=== PATIENT | female | born 1980 | race Caucasian/White ===

== ENCOUNTER 2018-01-15 21:26 | Emergency (ER) | payer SELFPAY ==
[2018-01-15 21:48] VITALS: BP 145/87
--- NOTE | 2018-01-15 21:50 | ED Physician Documentation ---
Skin Rash - HISTORIAN Historian: patient - HPI Stated Complaint: Facial rash Chief Complaint: Skin Rash Onset: days ago (4) Timing: still present Duration: worse Location: facial Quality: none Identified Cause?: No Where: home Context: Medication Exposure: none Context: Food Exposure: none Context: Other Exposure: other (none ) - ROS CONST: none CVS/RESP: none MS/SKIN/LYMPH: rash - PAST HX Past History: none Other History: none Surgeries/Procedures: No Immunizations: UTD Allergies/Adverse Reactions: Allergies Allergy/AdvReac Type Severity Reaction Status Date / Time citalopram [From Celexa] Allergy Verified 01/15/18 21:48 fluoxetine [From Prozac] Allergy Verified 01/15/18 21:48 sertraline [From Zoloft] Allergy Verified 01/15/18 21:48 Home Medications: Ambulatory Orders Medication Instructions Recorded Doxycycline Monohydrate 100 mg PO BID 01/15/18 [Vibramycin] Mupirocin [Bactroban] 1 applic TOP TID 01/15/18 - SOCIAL HX Smoking History: non-smoker Alcohol Use: none Drug Use: none - FAMILY HX Family History: none - VITAL SIGNS Vital Signs: Vital Signs Temp Pulse Resp BP Pulse Ox 98.8 F 95 H 16 145/87 95 01/15/18 21:26 01/15/18 21:26 01/15/18 21:26 01/15/18 21:26 01/15/18 21:26 - REVIEWED ASSESSMENTS Nursing Assessment Reviewed: Yes Vitals Reviewed: Yes ED Results Lab/Radiology - Orders Orders: ED Orders Category Date Time Status Clindamycin HCl [Cleocin] Med 01/15/18 21:51 Once 300 mg PO NOW ONE methylPREDNISolone ACETATE [Depo-Medrol] Med 01/15/18 21:51 Once 80 mg IM NOW ONE Skin Rash Physical Exam - EXAM General Appearance: no acute distress, alert Skin: warm,dry, other (raised areas with white pustule formations. Some crusting. ) Location: generalized, face Character: symmetric, papular, patchy, vesicular Symptoms: swelling, crusting. No: warmth, tenderness Extremities: non-tender, nml ROM, no edema EENT: eyes nml inspection Neck: trachea midline, no swelling Respiratory: no resp distress, chest non-tender, breath sounds normal CVS: reg. rate & rhythm, heart sounds nml Abdomen: non-tender Neuro/Psych: oriented x3, CN's nml as tested, motor nml, sensation nml, mood/affect nml Discharge Clincal Impression: Skin rash Referrals: Primary Doctor,No [Primary Care Provider] - 2 Days Additional Instructions: 1. Stop Doxycycline 2. Start Clindamycin 300 mg take 1 by mouth TID x 10 days 3. Continue cream as prescribed 4. Watch for signs of spreading 5. Benadryl if needed as directed 6. Follow up with PCP in 2-4 days 7. Return to ER for further concerns Condition: Stable Disposition: 01 HOME, SELF-CARE Decision to Admit: NO Date of Decison to Admit: 01/15/18 Decision Time: 21:55
[2018-01-15] MEDS ORDERED: methylPREDNISolone ACETATE 80 MG/ML VIAL IM ONE (21:51)
[2018-01-15] MEDS ORDERED: CLINDAMYCIN HCL 150 MG CAPSULE PO ONE (21:51)
== END 2018-01-15 22:05 | disposition home or self-care (01) ==
LOC: ED 21:26
DX: R21 Rash and other nonspecific skin eruption (principal)
CPT/HCPCS: A9270; J1040; 99283